=== PATIENT | female | born 1940 | race Caucasian/White ===

== ENCOUNTER → 2016-06-14 | Outpatient (CLI) | payer BC ==
[~2016-06-14] MED LIST: ALBUAER19 INH; ATOR-24 PO; CETI10TA84 PO; DABI150C PO; DILT-113 PO; FLUT0.0529 NAE; FRRS300 PO; FURO20TA PO; GFNSR600 PO; IRBE1TAB46 PO; LCTX PO; METF1TAB85 PO; OMEP20CA9 PO; SYMIN INH; TRIA0.1C20 TOP
[2016-06-14 13:13] LABS: ESTIMATED AVERAGE GLUCOSE 174 mg/dl; HA1C FLAG Normal (Normal)
[2016-06-14 13:14] LABS: RATIO 26.2 mcg/mg (0-30.0)
[2016-06-14 13:22] LABS: ALT/SGPT 22 U/L (12-78); AST/SGOT 13 U/L (15-37); BLOOD UREA NITROGEN 20 mg/dl (7-18); BUN/CREATININE RATIO 18.3 (10-20); CALCIUM 9.1 mg/dl (8.5-10.1); CARBON DIOXIDE 29 mmol/L (21-32); CHLORIDE 104 mmol/L (98-107); CHOLESTEROL 133 mg/dl (0-200); GLUCOSE 175 mg/dl (70-99); POTASSIUM 4.1 mmol/L (3.5-5.1); SODIUM 141 mmol/L (136-145); TRIGLYCERIDES 156 mg/dl (0-150); VERY LOW DENSITY LIPOPROT CALC 31 mg/dl
[2016-06-14 13:23] LABS: ALB/GLOB RATIO 1.1 (0.9-2); ALKALINE PHOSPHATASE 94 U/L (45-117); CHOLESTEROL/HDL RATIO 2.6; HDL CHOLESTEROL 52 mg/dl; LDL CHOLESTEROL CALCULATED 50 mg/dl
== END | disposition home or self-care (01) ==
LOC: C.LABPVFM 09:36
PROVIDERS: ATTEND Family Medicine
DX: E78.5 Hyperlipidemia, unspecified (principal); I48.91 Unspecified atrial fibrillation; I10 Essential (primary) hypertension; E11.29 Type 2 diabetes mellitus with other diabetic kidney complication

== ENCOUNTER → 2016-11-16 | Outpatient (CLI) | payer BC ==
[2016-11-16 13:23] LABS: ESTIMATED AVERAGE GLUCOSE 197 mg/dl; HA1C FLAG Normal (Normal)
[2016-11-16 13:47] LABS: AST/SGOT 15 U/L (15-37); BLOOD UREA NITROGEN 13 mg/dl (7-18); BUN/CREATININE RATIO 13.2 (10-20); CALCIUM 8.8 mg/dl (8.5-10.1); CARBON DIOXIDE 27 mmol/L (21-32); CHLORIDE 104 mmol/L (98-107); CREATININE 0.96 mg/dl (0.60-1.20); GLUCOSE 174 mg/dl (70-99); POTASSIUM 4.1 mmol/L (3.5-5.1); SODIUM 138 mmol/L (136-145)
[2016-11-16 13:49] LABS: ALB/GLOB RATIO 1.1 (0.9-2); ALKALINE PHOSPHATASE 99 U/L (45-117); ALT/SGPT 21 U/L (12-78)
[2016-11-16 14:15] LABS: RATIO 43.9 mcg/mg (0-30.0)
--- NOTE | 2016-11-22 11:58 | CODING QUERY MEDICAL NECESSITY ---
SUPPORTING DIAGNOSIS NEEDED Dr. Rodriguez, A supporting diagnosis is required for the test/procedure performed on this patient in order for us to be reimbursed by the patient's insurance. Please provide a supporting diagnosis for the following test/procedure listed below next to the test name along with your signature. *If there is no additional diagnosis for this patient that would support the following test/procedure please document that below next to the test/procedure. Test(s)/Procedure(s) that require a supporting diagnosis: * [id number] GLYCATED HEMOGLOBIN DIAGNOSIS: DATE OF SERVICE: 11/16/16 Provider Signature: Date: Thank you Rui [facility] Information Management Once completed, please kindly fax back to [phone] For questions please call [phone]
== END | disposition home or self-care (01) ==
LOC: C.LABPVFM 08:02
PROVIDERS: ATTEND Family Medicine
DX: K64.9 Unspecified hemorrhoids (principal); E11.29 Type 2 diabetes mellitus with other diabetic kidney complication

== ENCOUNTER → 2016-12-30 | Outpatient (CLI) | payer BC ==
[2016-12-30 13:04] LABS: CHOLESTEROL/HDL RATIO 2.3
== END | disposition home or self-care (01) ==
LOC: C.LABPVFM 09:47
PROVIDERS: ATTEND Internal Medicine Cardiovascular Disease
DX: E78.5 Hyperlipidemia, unspecified (principal)

== ENCOUNTER → 2017-03-16 | Outpatient (CLI) | payer BC ==
[2017-03-16 13:01] LABS: CREATININE RANDOM URINE 76.6 mg/dl
[2017-03-16 13:06] LABS: ALBUMIN 3.6 gm/dl (3.4-5.0); ALT/SGPT 27 U/L (12-78); AST/SGOT 16 U/L (15-37); BLOOD UREA NITROGEN 15 mg/dl (7-18); CALCIUM 8.9 mg/dl (8.5-10.1); CARBON DIOXIDE 23 mmol/L (21-32); CREATININE 1.09 mg/dl (0.60-1.20); GLUCOSE 293 mg/dl (70-99); POTASSIUM 3.9 mmol/L (3.5-5.1); SODIUM 133 mmol/L (136-145)
[2017-03-16 13:10] LABS: ALKALINE PHOSPHATASE 99 U/L (45-117); CHOLESTEROL 125 mg/dl (0-200); LDL CHOLESTEROL CALCULATED 34 mg/dl; TOTAL PROTEIN 7.2 gm/dl (6.4-8.2)
[2017-03-16 13:12] LABS: HEMOGLOBIN A1C 11.2 % (4.5-5.6)
== END | disposition home or self-care (01) ==
LOC: C.LABPVFM 09:29
PROVIDERS: ATTEND Family Medicine
DX: I48.91 Unspecified atrial fibrillation (principal); I10 Essential (primary) hypertension; E11.29 Type 2 diabetes mellitus with other diabetic kidney complication

== ENCOUNTER → 2017-04-27 | Outpatient (CLI) | payer BC ==
[2017-04-27 13:00] LABS: BLOOD UREA NITROGEN 16 mg/dl (7-18); CALCIUM 8.9 mg/dl (8.5-10.1); CARBON DIOXIDE 27 mmol/L (21-32); CREATININE 1.01 mg/dl (0.60-1.20); GLUCOSE 203 mg/dl (70-99); POTASSIUM 3.9 mmol/L (3.5-5.1); SODIUM 136 mmol/L (136-145)
== END | disposition home or self-care (01) ==
LOC: C.LABPVFM 09:47
PROVIDERS: ATTEND Family Medicine
DX: I10 Essential (primary) hypertension (principal); E11.29 Type 2 diabetes mellitus with other diabetic kidney complication

== ENCOUNTER → 2017-06-28 | Outpatient (CLI) | payer BC ==
[2017-06-28 13:35] LABS: HEMOGLOBIN A1C 8.1 % (4.5-5.6)
[2017-06-28 14:18] LABS: CREATININE RANDOM URINE 31.5 mg/dl
== END | disposition home or self-care (01) ==
LOC: C.LABPVFM 09:12
PROVIDERS: ATTEND Family Medicine
DX: E11.29 Type 2 diabetes mellitus with other diabetic kidney complication (principal)

== ENCOUNTER → 2017-10-04 | Outpatient (CLI) | payer BC ==
[2017-10-04 14:10] LABS: ALBUMIN 3.7 gm/dl (3.4-5.0); ALKALINE PHOSPHATASE 86 U/L (45-117); ALT/SGPT 22 U/L (12-78); AST/SGOT 15 U/L (15-37); BLOOD UREA NITROGEN 11 mg/dl (7-18); CALCIUM 8.6 mg/dl (8.5-10.1); CARBON DIOXIDE 26 mmol/L (21-32); CHOLESTEROL 108 mg/dl (0-200); CREATININE 1.08 mg/dl (0.60-1.20); GLUCOSE 158 mg/dl (70-99); LDL CHOLESTEROL CALCULATED 27 mg/dl; POTASSIUM 4.1 mmol/L (3.5-5.1); SODIUM 139 mmol/L (136-145)
== END | disposition home or self-care (01) ==
LOC: C.LABPVFM 08:33
PROVIDERS: ATTEND Family Medicine
DX: E78.5 Hyperlipidemia, unspecified (principal); I48.91 Unspecified atrial fibrillation; I12.9 Hypertensive chronic kidney disease with stage 1 through stage 4 chronic kidney disease, or unspecified chronic kidney disease; N18.3 Chronic kidney disease, stage 3 (moderate); E11.22 Type 2 diabetes mellitus with diabetic chronic kidney disease

== ENCOUNTER 2019-03-21 04:54 | Inpatient (IN) ==
--- NOTE | 2019-02-22 09:05 | PAT Medication Instructions ---
Medication Instructions Date of Service February 22, 2019 Home Medications Medication Instructions Recorded diltiazem HCl 120 mg capsule,24 120 mg PO QPM #90 cap 11/29/18 hr,extended release diltiazem HCl 180 mg capsule,24 180 mg PO QAM #90 cap 02/13/19 hr,extended release metformin 500 mg tablet,extended 500 mg PO BID 90 Days #180 tab 02/20/19 release 24 hr Pradaxa 150 mg PO BID albuterol sulfate [ProAir HFA] 2 puff INHALATION Q6H PRN ferrous sulfate 325 mg PO QAM furosemide 20 mg PO QAM diltiazem HCl 120 mg capsule,24 hr,extended release 120 mg PO QPM irbesartan 150 mg tablet 75 mg PO QAM diltiazem HCl 180 mg capsule,24 hr,extended release 180 mg PO QAM atorvastatin 40 mg PO QAM sitagliptin [Januvia] 100 mg PO QAM metformin 500 mg tablet,extended release 24 hr 500 mg PO BID ASK your prescriber and surgeon Pradaxa 150 mg PO BID MUST BE HELD FOR AT LEAST 5 FULL DAYS BEFORE SURGERY FOR SPINAL ANESTHESIA (PREFERRED METHOD) DO NOT take the morning of surgery ferrous sulfate 325 mg PO QAM furosemide 20 mg PO QAM irbesartan 150 mg tablet 75 mg PO QAM sitagliptin [Januvia] 100 mg PO QAM metformin 500 mg tablet,extended release 24 hr 500 mg PO BID Take morning of surgery With a small sip of water, OTHERWISE NOTHING TO EAT OR DRINK AFTER MIDNIGHT: albuterol sulfate [ProAir HFA] 2 puff INHALATION Q6H PRN (if needed, and bring with you to the hospital) diltiazem HCl 180 mg capsule,24 hr,extended release 180 mg PO QAM atorvastatin 40 mg PO QAM Take evening before surgery albuterol sulfate [ProAir HFA] 2 puff INHALATION Q6H PRN (if needed) diltiazem HCl 120 mg capsule,24 hr,extended release 120 mg PO QPM metformin 500 mg tablet,extended release 24 hr 500 mg PO BID Other Notes If you have any questions please call us at [phone] or [phone] or [phone] or [phone]
--- NOTE | 2019-02-23 12:10 | Anesthesiology Consultation ---
Date of Service February 23, 2019 Assessment & Plan (1) Encounter for pre-operative examination: Medical clearance 02/20/2019: "Patient is medically stratified for surgery at this time." Cardiology clearance 12/31/2018: "Patient is stable from a cardiovascular standpoint. She demonstrates excellent control of her blood pressure and LDL cholesterol. Mistreats excellent functional status without limiting cardiac symptoms. She is an acceptable risk for knee replacement surgery without further testing." Patient states she was told to hold Pradaxa for 3 days prior to surgery. Advised it must be held for at least 5 full days prior to surgery for spinal anesthesia. She will check with surgeon and linderman machine operator to see if OK to hold for 5 days. Chart Review Chart Review: Acceptable Risk for Surgery and Patient seen in Pre Admission Testing Teaching & Discussion Instructed NPO after midnight before surgery, except medications with 15 cc of water. Medication instructions provided according to the PAT guidelines. History Surgery Operation Date: 03/21/19 07:00 Proposed Procedures p Right Total Knee Arthroplasty - Christopher Zepeda MD Height/Weight Height: 5 ft 4 in Weight: 89.3 kg Allergies Allergy/AdvReac Type Severity Reaction Status Date / Time mercury (elemental) Allergy Severe EYES SWELL Verified 02/20/19 13:51 SHUT Sulfa (Sulfonamide Allergy Mild RASH Verified 02/20/19 13:51 Antibiotics) oxycodone [From Percocet] Allergy DIZZY,"MAKES Verified 02/20/19 14:27 ME HASMUKH" Medications Home Medications Medication Instructions Recorded Confirmed Last Taken Pradaxa 150 mg PO BID 11/08/17 02/20/19 11/12/17 22:30 albuterol sulfate [ProAir HFA] 2 puff INHALATION Q6H PRN 11/08/17 02/20/19 Unknown ferrous sulfate 325 mg PO QAM 11/08/17 02/20/19 11/14/17 10:00 furosemide 20 mg PO QAM 11/08/17 02/20/19 11/14/17 10:00 diltiazem HCl 120 mg capsule,24 120 mg PO QPM #90 cap 11/29/18 02/20/19 Unknown hr,extended release irbesartan 150 mg tablet 75 mg PO QAM tab 01/08/19 02/20/19 Unknown diltiazem HCl 180 mg capsule,24 180 mg PO QAM #90 cap 02/13/19 02/20/19 Unknown hr,extended release atorvastatin 40 mg PO QAM 02/14/19 02/20/19 Unknown sitagliptin [Januvia] 100 mg PO QAM 02/14/19 02/20/19 Unknown metformin 500 mg tablet,extended 500 mg PO BID 90 Days #180 tab 02/20/19 02/20/19 Unknown release 24 hr Past Medical History Medical History (Updated 02/26/19 @ 10:30 by Octaviano Mercado) Asthma NO INHALER USE PAST YR Atrial fibrillation F/U DR VALENTIN Q 6MONTHS Cardiac murmur Mild tricuspid regurg on 2000 echo Carpal tunnel syndrome on both sides Chronic back pain Chronic kidney disease (CKD) Diabetes mellitus, type 2 Diverticular disease GERD (gastroesophageal reflux disease) History of cardioversion x 2. Has since returned to A fib. Hyperlipidemia Hypertension On anticoagulant therapy Osteoarthritis Peripheral neuropathy SOB (shortness of breath) on exertion Exercise / Class Metabolic Activity III < 4 Walking/Shop/Light housework (+mild SOB with 1 FOS, denies CP. Using cane for ambulation.) Past Family History Family History Mother Diabetes Coronary heart disease Hypertension Father Diabetes Coronary heart disease Stroke Sister Diabetes Cancer elbow Brother Kidney disease Diabetes Past Surgical History Surgical History History of back surgery Fusion History of bilateral tubal ligation History of cataract surgery RT/LEFT History of colonoscopy History of dilatation and curettage History of laminectomy FUSION History of tooth extraction History of total hip arthroplasty BILAT History of total knee replacement LEFT Past Anesthesia History No Hx of Anesthesia Complications and No Family Hx of Anesthesia Complications History of PONV No Hx of PONV and No Hx of Motion Sickness Social History Smoking Status: Former smoker tobacco type: cigarettes Do You Dip or Chew Tobacco: No Smoking End Date: 2008 Hx Alcohol Use: Yes Alcohol type: beer, wine and hard liquor alcohol intake frequency: a few times a month Hx Substance Use: No substance use type: does not use Review of Systems Pt denies any recent chest pain, shortness of breath, palpitations, cough, fever or URI. Physical Exam Vital Signs BP: 110/54 P: 83bpm SPO2: 95% RA T: 98.4 F R: 16 ENMT Mouth: + dentures (partial upper) and + dental restorations (several crowns); no chipped teeth and no loose teeth Thyromental Distance: > or= 3.5 Finger Breadths (3.5) Mallampati Class: III Neck normal visual inspection; neck extension not limited Respiratory normal respiratory effort Auscultation: lungs clear to auscultation bilaterally Cardiovascular Rate/Rhythm: regular rate; + abnormal rhythm (irreg irreg) Heart Sounds: + murmur (I/) Vessels: no carotid bruit Extremities: no edema Testing Laboratory Results 02/23/19 12:28 PT 14.2 Seconds (9.0-12.0) H 02/23/19 12:28 INR 1.4 (0.9-1.1) H 02/23/19 12:28 APTT 45.1 Seconds (21.0-31.0) H* 02/23/19 12:28 Urine Color Yellow 02/23/19 12:28 Urine Appearance Cloudy (Clear) A 02/23/19 12:28 Urine pH 5.0 (4.5-7.5) 02/23/19 12:28 Ur Specific [place] 1.016 (1.000-1.030) 02/23/19 12:28 Urine Protein Negative (Negative) 02/23/19 12:28 Urine Glucose (UA) 1+ (Negative) H 02/23/19 12:28 Urine Ketones Negative (Negative) 02/23/19 12:28 Urine Nitrite Negative (Negative) 02/23/19 12:28 Ur Leukocyte Esterase 1+ (Negative) H 02/23/19 12:28 Urine WBC (Auto) 1-5 /hpf (0-5) 02/23/19 12:28 Urine RBC (Auto) 10-30 /hpf (0-4) H 02/23/19 12:28 U Hyaline Cast (Auto) 1-5 /lpf (0-5) 02/23/19 12:28 U Epithel Cells (Auto) >30 /lpf (0-5) H 02/23/19 12:28 Urine Bacteria (Auto) Negative (Negative) 02/23/19 12:28 Blood Type O Positive 02/23/19 12:28 Antibody Screen NEGATIVE 02/23/19 12:28 02/15/19 SODIUM: 137 POTASSIUM: 4.0 CHLORIDE: 103 CO2: 28 BUN: 15 CREATININE: 1.21 GLUCOSE: 171 A1C: 7.5% Electrocardiogram Date: 02/23/19 Atrial flutter at 91 bpm with variable AV block. Right superior axis deviation. Nonspecific T wave abnormality. Compared with EKG of 11/16/2017, ventricular rate has decreased by 60 bpm, ST no longer depressed in lateral leads. Chest X-Ray Date: 02/23/19 IMPRESSION: No acute cardiopulmonary findings. Stable cardiomegaly.
--- NOTE | 2019-02-23 13:19 | XRay Report ---
XR chest Pre-admission PA/Lat CLINICAL HISTORY: Preoperative evaluation. COMPARISON STUDY: Chest radiograph 04/25/2014. Chest CT April 26, 2014. FINDINGS: Lung volumes are normal. Lungs are clear. There is no pneumothorax or pleural effusion. Hea rt is mildly enlarged. Mediastinal contours are normal. There is no evidence for pulmonary edema. Inc idental note is made of multilevel discectomy and fusion within the lumbar spine. IMPRESSION: No acute cardiopulmonary findings. Stable cardiomegaly. Electronically signed by: Po Stiles M.D. 02/23/2019 1:18 PM
[2019-02-23 13:31] LABS: Basophils # (auto) 0.03 K/uL (0-0.2); Basophils % (auto) 0.3 %; Eosinophils % (auto) 1.1 %; Hematocrit (blood only) 41.7 % (37-47); Hemoglobin 13.8 g/dL (12.0-16.0); Immature Granulocytes # (auto) 0.03 K/uL (0.00-0.02); Immature Granulocytes % (auto) 0.3 %; Lymphocytes # (auto) 1.78 K/uL (1.2-3.4); Mean Corpuscular Hemoglobin 29.7 pg (25-34); Mean Corpuscular Hgb Conc 33.1 g/dL (32-36); Mean Corpuscular Volume 89.9 fL (80-100); Mean Platelet Volume 10.3 fL (7.4-10.4); Monocytes # (auto) 0.69 K/uL (0.11-0.59); Monocytes % (auto) 7.8 %; Neutrophils # (auto) 6.26 K/uL (1.4-6.5); Neutrophils % (auto) 70.5 %; Platelet Count 234 K/uL (130-400); RDW Coefficient of Variation 13.8 % (11.5-14.5); RDW Standard Deviation 45.2 fL (36.4-46.3); Red Blood Count 4.64 M/uL (4.2-5.4); White Blood Count 8.89 K/uL (4.8-10.8)
[2019-02-23 14:04] LABS: Appearance Urine Cloudy (Clear); Bacteria Urine Automated Negative (Negative); Bilirubin Urine Negative (Negative); Blood Urine 3+ (Negative); Color Urine Yellow; Epithelial Cell Urine Auto >30 /lpf (0-5); Glucose Urine UA 1+ (Negative); Ketones Urine Negative (Negative); Leukocyte Esterase Urine 1+ (Negative); Nitrite Urine Negative (Negative); Protein Urine Negative (Negative); Specific Gravity Urine 1.016 (1.000-1.030); Urobilinogen Urine Negative (Negative)
[2019-02-23 14:11] LABS: INR 1.4 (0.9-1.1); Partial Thromboplastin Ratio 1.7; Prothrombin Time 14.2 Seconds (9.0-12.0)
[2019-02-23 14:26] LABS: Partial Thromboplastin Time 45.1 Seconds (21.0-31.0)
--- NOTE | 2019-03-20 17:05 | History and Physical Report ---
DATE OF ADMISSION: 03/21/2019 CHIEF COMPLAINT: Chronic right knee pain. HISTORY OF PRESENT ILLNESS: This is a 78-year-old female, patient of Dr. Zarco, complaining of chronic right knee pain, longstanding, now progressively getting worse. The patient has failed conservative treatment including intraarticular injections, home exercise program, brace and the use of a cane. The patient has increased pain with weightbearing activities and her pain does interfere with her activities of daily living. The patient has been diagnosed with end-stage osteoarthritis per clinical and radiographic exams and wishes to proceed with a right total knee arthroplasty. PAST MEDICAL HISTORY: Hypertension, atrial fibrillation, diabetes mellitus, osteoarthritis, obesity. SOCIAL HISTORY: Nonsmoker, occasional drinker. PAST SURGICAL HISTORY: Left total knee replacement, spine surgery, left hip replacement, right hip replacement. FAMILY HISTORY: Noncontributory. REVIEW OF SYSTEMS: Chronic right knee pain and instability. Otherwise, denies any shortness of breath, chest pain, nausea, vomiting or any other joint complaints. MEDICATIONS: 1. Januvia 100 mg daily. 2. Atorvastatin 40 mg q.a.m. 3. Metformin 500 mg at bedtime. 4. Diltiazem 180 mg q.a.m. 5. Diltiazem 120 mg at bedtime. 6. Ferrous sulfate 325 daily. 7. Metformin 1000 mg q.a.m. 8. Irbesartan 75 mg q.a.m. 9. Furosemide 20 mg q.a.m. 10. Albuterol inhaler 90 mcg per actuation 2 puffs every 6 hours as needed for wheezing. 11. Pradaxa 150 mg twice daily. ALLERGIES: PERCOCET, SULFA, MERCURY. PHYSICAL EXAMINATION: GENERAL: Well-developed, well-nourished 78-year-old female in no acute distress. She is alert and oriented x3 and pleasant. HEENT: Normocephalic, atraumatic. Extraocular motions are intact. Pupils are equal and reactive to light. HEART: Irregular rhythm with a history of AFib. The rate is normal. LUNGS: Clear. ABDOMEN: Soft, nontender, bowel sounds are present. EXTREMITIES: Right knee limited range of motion of 0-125 with a varus deformity. Medial joint line tenderness. Positive crepitation, 5/5 strength. Neurologically and neurovascularly intact in her right lower extremity. DIAGNOSES: Right knee end-stage osteoarthritis, hypertension, atrial fibrillation, diabetes mellitus, osteoarthritis, sciatica, obesity. PLAN: The patient was advised of her diagnosis. Indications, risks, benefits, postop course have all been reviewed. The patient wished to proceed with a right total knee arthroplasty. Necessary consent forms, preoperative testing and clearances will be obtained.
[2019-03-21] MEDS ORDERED: FAMOTIDINE 20 MG TAB PO SCH (06:00)
[2019-03-21] MEDS ORDERED: METOCLOPRAMIDE HCL 10 MG TABLET PO SCH (06:00)
[2019-03-21] MEDS ORDERED: ACETAMINOPHEN 500 MG TAB PO SCH (06:00)
[2019-03-21] MEDS ORDERED: ROPIVACAINE 0.5% HCL/PF 150 MG, BUPIVACAINE 0.5% MPF 30 ML, EPINEPHrine 30MG/30ML (OR U... INSTIL SCH (06:00)
[2019-03-21] MEDS ORDERED: GABAPENTIN 300 MG CAP PO SCH (06:00)
[2019-03-21] MEDS ORDERED: LR 500ML BOLUS, THEN 15ML/HR IV SCH (06:00)
[2019-03-21] MEDS ORDERED: BUPIVACAINE 0.5 % 5 MG/1 ML PF 10ML VIAL ONE (06:24)
[2019-03-21] MEDS ORDERED: BUPIVACAINE/EPINEPHRINE 0.25% 1:200,000 30 ML VIAL ONE (06:24)
[2019-03-21] MEDS ORDERED: DEXAMETHASONE SOD INJ 4 MG/ML VIAL ONE (06:24)
[2019-03-21] MEDS ORDERED: ORTHO JOINT ANESTHETIC ONE (06:37)
[2019-03-21] MEDS ORDERED: BACITRACIN INJ 50,000 UNIT VIAL ONE (06:37)
[2019-03-21] MEDS ORDERED: MIDAZOLAM HCL 1 MG/ML 2ML VIAL ONE ×2 (06:38)
[2019-03-21] MEDS ORDERED: fentaNYL citrate 100 MCG/2 ML VIAL ONE (06:38)
--- NOTE | 2019-03-21 07:00 | History & Physical Bridge Note ---
Date of Service March 21, 2019 History & Physical Bridge Note I have examined the patient, reviewed the History & Physical and in the interval since the performance of the History & Physical I have noted the following changes of clinical significance: no changes noted
[2019-03-21] MEDS: CEFAZOLIN 2000MG 2,000 MG/15 ML SYR IV SCH ×4 (07:17→21:59)
[2019-03-21] MEDS ORDERED: fentaNYL citrate 100 MCG/2 ML VIAL IV PRN (07:20)
[2019-03-21] MEDS ORDERED: ONDANSETRON INJ 2 MG/ML 2 ML VIAL IV PRN ×2 (07:20→10:49)
[2019-03-21] MEDS ORDERED: ATROPINE SULFATE 0.1 MG/ML 10ML SYR IV PRN (07:20)
[2019-03-21] MEDS ORDERED: ePHEDrine sulfate 50 MG/ML AMP IV PRN (07:20)
--- NOTE | 2019-03-21 08:43 | Post Operative Brief Note ---
Immediate Post Op Note v1 Date of Surgery March 21, 2019 Pre & Post Diagnosis Operation Date: 03/21/19 07:00 Pre-Op Diagnosis: Right Knee End Stage Osteoarthritis Post-Op Diagnosis: Right Knee End Stage Osteoarthritis I identified the patient and participated in the time-out.: Yes Procedure Operation Date: 03/21/19 07:00 Actual Procedures p Right Total Knee Arthroplasty(Right) - Christopher Zepeda MD Surgeon Christopher Zepeda MD Sales Director NAVA Anguiano Estimated Blood Loss 5 Findings Consistent with Post-Op Diagnosis Specimens Bone cuts Drains Hemovac Drain (10 fr dual luman ) Anesthesia Type MAC Spinal Regional Complications none Disposition Accompanied Patient To Recovery: No Disposition: Recovery Room Overlapping Procedure I was present for: the critical portions of procedure. Back up surgeon: was not required during procedure.
[2019-03-21] MEDS ORDERED: PROPOFOL IV EMULSION 10 MG/ML 20 ML VIAL IV ONE (08:53)
[2019-03-21] MEDS ORDERED: LIDOCAINE HCL 2% 2 ML VIAL/AMP(20MG/ML) INFIL ONE (08:54)
[2019-03-21] MEDS ORDERED: PHENYLEPHRINE 100MCG/ML 5ML SYR ONE (08:54)
[2019-03-21] MEDS ORDERED: ONDANSETRON INJ 2 MG/ML 2 ML VIAL ONE (08:54)
--- NOTE | 2019-03-21 09:49 | XRay Report ---
XR knee RT 1 or 2V routine CLINICAL HISTORY: 78 years-old Female presenting with Surgical Post Op. TECHNIQUE: Frontal and crosstable lateral views of the right knee were obtained. COMPARISON: None. FINDINGS: Postsurgical changes of total right knee arthroplasty with patellar resurfacing. Surgical drain and s kin chin in place. No malalignment. No periprosthetic fracture or lucency. Expected intra-articula r and soft tissue emphysema. Atherosclerosis. IMPRESSION: Expected postsurgical appearance status post total right knee arthroplasty. ACT 112: Negative or not required by law. Electronically signed by: Jason Pearson M.D. 03/21/2019 9:48 AM
--- NOTE | 2019-03-21 10:17 | Anesthesiology Progress Note ---
Date of Service March 21, 2019 Anesthesia Post Procedure Vital Signs Vital Signs: Temp Pulse Pulse Resp BP Pulse Ox 03/21/19 10:05 36.3 C L 86 21 118/70 96 03/21/19 09:55 70 16 109/57 L 94 03/21/19 09:45 78 16 111/66 95 03/21/19 09:35 37.0 C 75 16 108/60 95 03/21/19 09:25 82 18 111/58 L 96 03/21/19 09:15 92 H 18 107/64 99 03/21/19 09:07 37.1 C 90 18 110/64 98 03/21/19 05:42 36.7 C 96 H 20 146/95 H 95 Transfer of Care Handoff Completed per policy Notes Mental Status: alert / awake / arousable Patient Amnestic to Procedure: Yes Nausea / Vomiting: adequately controlled Pain: adequately controlled Airway Patency, RR, SpO2: stable & adequate BP & HR: stable & adequate Hydration State: stable & adequate Neuraxial Anesthesia: was administered and sensory block is resolving Anesthetic Complications: no major complications apparent
[2019-03-21] MEDS ORDERED: NALOXONE HCL 0.4 MG/1 ML VIAL/CARP IV PRN (10:49)
[2019-03-21] MEDS ORDERED: ACETAMINOPHEN SOL 650 MG/20.3 ML UDC PO PRN (10:49)
[2019-03-21] MEDS ORDERED: bisacodyL 10 MG SUPP PR PRN (10:49)
[2019-03-21] MEDS ORDERED: MAGNESIUM HYDROXIDE SUSP 30 ML UDC PO PRN (10:49)
[2019-03-21] MEDS ORDERED: HYDROmorphone INJ 0.5 MG/0.5 ML SYR IV PRN (10:49)
[2019-03-21] MEDS ORDERED: ALBUTEROL HFA INHALER 8.5 GM INH PRN (11:02)
[2019-03-21] MEDS ORDERED: PHARMACY GLYCEMIC MGMT CONSULT PRN (11:31)
[2019-03-21] MEDS ORDERED: GLUCOSE 40% GEL 15 GM TUBE PO PRN (11:45)
[2019-03-21] MEDS ORDERED: DEXTROSE 50% 50 ML SYRINGE IV PRN (11:45)
[2019-03-21] MEDS ORDERED: GLUCOSE 10 TABS/TUBE PO PRN (11:45)
[2019-03-21] MEDS ORDERED: CARBOHYDRATES FOR HYPOGLYCEMIA PO PRN (11:45)
[2019-03-21] MEDS ORDERED: GLUCAGON FOR INJ 1 MG VIAL IM PRN (11:45)
[2019-03-21] MEDS: SODIUM CHLORIDE 0.9% 1000ML 1,000 ML IV SCH (11:58)
--- NOTE | 2019-03-21 12:02 | Pharmacy Report ---
Glycemic Control Consultation - Date of Service March 21, 2019 - Scope Scope: Glycemic Pharmacist consulted by Maco Taylor on 03/21 for glycemic control and to write orders per [facility] inpatient glycemic control protocol - Objective Weight: 86.693 kg Accuchecks BSG (last 24hrs): 03/21/19 03/21/19 05:22 09:09 POC Glucose 165 H 200 H - Recent Pertinent Medications Outpatient Anti-diabetic Regimen: * metformin 500 mg bid, sitagliptan 100 qam * A1c = 7.5 % 02/25/19 Risk Factors for Insulin Resistance: * Steroids: dex in OR * Recent Surgery: POD 0 * Diet: T2DM - Assessment & Plan Assessment & Plan: ASSESSMENT: * 78 year old female now s/p knee arthroplasty, POD 0. Type 2 diabetic managed only on oral agents at home * Received dexamethasone in OR therefore anticipate steroid induced hyperglycemia * Will utilize basal/bolus insulin postop for glycemic control PLAN FOR INPATIENT GLYCEMIC CONTROL: * Pt is maintained on oral antidiabetic agents as an outpatient * Oral agents are not recommended for inpatient use d/t drug interactions, changing PO intake, and difficulty titrating for acute hyper/hypoglycemia. ADA recommends re-initiating outpatient oral agents 1-2 days prior to discharge if/when appropriate if they were held on admission. * Will hold oral agents for admission and utilize SQ basal bolus insulin regimen which is the recommended regimen for inpatient glycemic control. * Will initiate weight based insulin dosing for insulin michel patient and titrate based on BSG trends. * Basal insulin * Lantus 20 units x 1 (0.2 units/kg - to cover steroids) * Bolus insulin * NovoLog per scale ACHS or Q6hrs while NPO * Goal Range: Low 120 mg/dL - High 160 mg/dL * Correction Factor: 20 mg/dL/unit * Nutritional / Prandial insulin per carb ratio of 1 unit per 7 grams CHO consumed * Please note that the plan above was derived based on current level of insulin resistance and hospital stress. These recommendations are appropriate for inpatient admission only. Plan of care upon discharge will need to be reassessed to avoid potential outpatient hypo/hyperglycemia. Thank you.
[2019-03-21] MEDS ORDERED: INSULIN GLARGINE SOLOSTAR 100 UNITS/ML 3 ML PEN SC ONE (12:45)
[2019-03-21] MEDS: INSULIN ASPART 100 UNITS/ML 3 ML PEN SC SCH ×3 (13:04→21:08)
--- NOTE | 2019-03-21 13:42 | Operative Report ---
Post Operative Report Pre & Post Diagnosis Operation Date: 03/21/19 07:00 Pre-Op Diagnosis: Right Knee End Stage Osteoarthritis Post-Op Diagnosis: Right Knee End Stage Osteoarthritis I identified the patient and participated in the time-out.: Yes Procedure Operation Date: 03/21/19 07:00 Actual Procedures p Right Total Knee Arthroplasty(Right) - Christopher Zepeda MD Surgeon Christopher Zepeda MD Carrot Harvester NAVA Anguiano Estimated Blood Loss 5 Findings Consistent with Post-Op Diagnosis Specimens Bone cuts Drains 2 Hemovac Anesthesia Type MAC Spinal Regional Complications none Disposition Accompanied Patient To Recovery: No Disposition: Recovery Room Indications 78-year-old female with chronic progressive osteoarthritis in her right knee. She had previous left knee replacement in the past. Patient is failed all conservative management now presents for right knee replacement. Radiographs demonstrate she has a varus knee she is [id number] medial compartment tricompartmental osteoarthritis Description of Procedure Patient taken to the operating room the size under spinal MAC regional anesthesi a. Patient was placed supine on the operating table. A pneumatic tourniquet was placed about the right upper thigh. The right lower extremity was prepped and draped in sterile fashion. Knee exam demonstrated 15 degree flexion contracture with good flexion 130 degrees with no instability to varus valgus stress but positive Ken exam. The leg was elevated exsanguinated with an Esmarch bandage and pneumatic tourniquet was raised to 325 millimeters of mercury. Skin incised sharply in longitudinal fashion. Subcutaneous flaps elevated. Incision was made through the medial retinaculum extending up in the mid third of the quadriceps tendon and down to the medial tibial tubercle. Intra-articular findings demonstrated tricompartmental osteoarthritis [id number] medial compartment chronic ACL tear. The CompStak triathlon total knee arthroplasty system was used. To expose the knee the infrapatellar fat pad was resected. The meniscal remnants and cruciate ligaments were resected. The anterior fat pad over the femur in the area of the anterior flange of the femoral component was resected. Lateral synovial bands release. The femur was exposed. An intramedullary drill hole was made into the canal. A guide laura was placed. Distal femoral cutting guide was adjusted to resect a 5 degree valgus cut with 10 millimeters distal femur resected. The knee was extended and a subperiosteal peel lateral release was performed around the patella. Patella width was measured and width was reproduced using a freehand cut technique and a 31 x 9 symmetrical patella component. The 3 drill holes were made and the excess lateral facet was beveled off to prevent any impingement. Attention was taken back to the femur which was exposed with retractors and the femoral sizing guide was pinned in position. The drill holes were placed in 3 of external rotation to match epicondylar axis. Femur sized for a 3 right posterior stabilized component. The 4-in-1 cutting block was placed and then the anterior posterior and chamfer cuts are made. The tibia was then subluxed. The external tibial cutting guide was just to make a perpendicular cut to the long axis of the tibia below the most deficient bone loss side. A lamina practicing dermatologist was used and the flexion extension gaps were balanced. All posterior osteophytes removed. All meniscal remnants were resected. The tibia exposed and the trial tibial component size 3 was externally rotated in line with the tibial tubercle and pinned in position. The punch for stem was used. The notch cutting device was centered appropriately and the femoral notch cut was made. The femoral trial was inserted. Trial tibial inserts were placed and size 3 x 11 posterior stabilized trial gave balanced ligaments through flexion and extension. Patella tracking was assessed. The patella tracked centrally. The trial components were then removed and the orthomix anesthetic cocktail was injected per protocol. The knee was then copiously irrigated with pulsatile lavage antibiotic solution. Final components were then cemented with Simplex cement. Final components were triathlon size 3 right posterior stabilized femoral component, 3 tibial primary baseplate, 3 x 11 posterior stabilized polyethylene insert for tibia, S 31 x 9 mm symmetrical patella. While the cement cured the Betadine soak was used per protocol. After cement cured further pulsatile lavage irrigation performed and 2 Hemovac drains were brought out laterally. The quadriceps tendon and medial retinaculum were closed with figure of 8 #1 Vicryl sutures. The knee was taken through full range of motion and the repair was secure. The subcutaneous tissues were closed with 2-0 Vicryl sutures. Skin was closed with chin. Sterile dressings were applied. Patient procedure well. Maco VICK was my physician workers compensation claims assistant who assisted in patient positioning prepping and draping,leg positioning ,soft tissue retraction and instrument management and participated in the closing and will participate in postoperative care of the patient. The patient tolerated the procedure well. I attest to the content of the Intraoperative Record and any orders documented therein. Any exceptions are noted below.
--- NOTE | 2019-03-21 18:03 | Hospitalist Progress Note ---
Date of Service March 21, 2019 Assessment & Plan (1) Post-operative state: s/p right TKA Pain control per primary Monitor for acute blood loss - CBC am (2) Atrial fibrillation: Continue home diltiazem Resume dabigatran when ok with surgery (3) DM (diabetes mellitus), type 2: consult pharmacy Hold metformin while inpatient (4) Hypertension: Hold irbesartan POD #1 to avoid post op hypotension, continue furosemide, diltiazem Subjective Ms. Concepcion is s/p right TKA today. She is in good spirits and feels well. No c omplaints Pmhx: DMII, GERD, atrial tachycardia, ANSON, hld, htn Social: former smoker, quit in 2008 - she smoked socially but not daily. She has about 4 glasses of wine per month. Lives alone. Family hx: heart disease, DMII ROS Constitutional: no chills, aches, sweats or fever Respiratory: no sob,cough, sputum, or wheezing Cardiac: no chest pain, palpitations, edema, orthopnea or lightheadedness GI: no abdominal pain, nausea, vomiting, diarrhea or constipation : no dysuria or hesitancy Extremities: no joint pain or weakness Skin: no rash All other systems reviewed and negative Physical Exam Physical Exam: General: no distress Eyes: normal inspection, PERLL Respiratory: chest non tender, clear to auscultation, normal breath sounds, no respiratory distress, no accessory muscle use Cardiac: regular rate and rhythm, no rub or gallop, no murmur, no edema, no jvd GI/: active bowel sounds, no abd pain or tenderness, soft, non distended Extremities: normal range of motion, normal strength, non tender Neuro/Psych: alert and oriented x 3, normal mood and affect Skin: normal color, dry Results & Data Vital Signs (Past 12 Hours) Vital Signs Temp Pulse Pulse Pulse Resp BP Pulse Ox 03/21/19 16:11 36.9 C 91 H 18 125/79 94 03/21/19 13:44 36.9 C 81 16 110/62 93 03/21/19 12:28 85 16 121/77 96 03/21/19 11:30 74 16 117/70 97 03/21/19 10:55 78 16 111/69 98 03/21/19 10:30 36.8 C 85 16 105/67 97 03/21/19 10:05 36.3 C L 86 21 118/70 96 03/21/19 09:55 70 16 109/57 L 94 03/21/19 09:45 78 16 111/66 95 03/21/19 09:35 37.0 C 75 16 108/60 95 03/21/19 09:25 82 18 111/58 L 96 03/21/19 09:15 92 H 18 107/64 99 03/21/19 09:07 37.1 C 90 18 110/64 98 PG Care Time/CCT Total # of Minutes Spent Total Time Spent with Patient: Total time spent is greater than 50% in coord ination of care (as documented) at patient's floor/unit and/or counseling patient:
[2019-03-21] MEDS ORDERED: DABIGATRAN ETEXILATE 75 MG CAP PO SCH (21:00)
[2019-03-21] MEDS ORDERED: INSULIN HUMAN REGULAR PER UNIT 6 UNITS in SYRINGE 5.94 ML IV ONE (21:00)
[2019-03-21] MEDS: DOCUSATE SODIUM 100 MG CAP PO SCH (21:09)
[2019-03-21] MEDS: dilTIAZem ER 120 MG CAPCR PO SCH (21:09)
[2019-03-21] MEDS: SENNA 8.6 MG TAB PO SCH (21:09)
[2019-03-22] MEDS: SODIUM CHLORIDE 0.9% 1000ML 1,000 ML IV SCH (00:08)
[2019-03-22] MEDS: INSULIN ASPART 100 UNITS/ML 3 ML PEN SC SCH ×6 (00:50→20:31)
[2019-03-22] MEDS: HYDROCODONE/ACETAMOPHEN 5/325MG TAB PO PRN ×4 (04:27→20:33)
[2019-03-22] MEDS: CEFAZOLIN 2000MG 2,000 MG/15 ML SYR IV SCH (06:13)
[2019-03-22 06:49] LABS: Hematocrit (blood only) 34.7 % (37-47); Hemoglobin 11.5 g/dL (12.0-16.0); Mean Corpuscular Hemoglobin 29.2 pg (25-34); Mean Corpuscular Hgb Conc 33.1 g/dL (32-36); Mean Corpuscular Volume 88.1 fL (80-100); Mean Platelet Volume 9.7 fL (7.4-10.4); Platelet Count 222 K/uL (130-400); RDW Coefficient of Variation 13.2 % (11.5-14.5); RDW Standard Deviation 42.8 fL (36.4-46.3); Red Blood Count 3.94 M/uL (4.2-5.4); White Blood Count 12.66 K/uL (4.8-10.8)
[2019-03-22 07:20] LABS: BUN Creatinine Ratio 11.3 (10-20); Calcium 8.4 mg/dl (8.5-10.1); Creatinine Clr Calc Pharmacy 45.3 ml/min; Est GFR (African American) 56.3; Est GFR (Non-African American) 48.6; Potassium 4.2 mmol/L (3.5-5.1)
[2019-03-22] MEDS ORDERED: INSULIN GLARGINE SOLOSTAR 100 UNITS/ML 3 ML PEN SC ONE (08:30)
[2019-03-22] MEDS ORDERED: IRBESARTAN 75 MG TAB PO SCH (09:00)
[2019-03-22] MEDS: DOCUSATE SODIUM 100 MG CAP PO SCH ×2 (09:03→20:30)
[2019-03-22] MEDS: FUROSEMIDE 20 MG TAB PO SCH (09:03)
[2019-03-22] MEDS: MULTIVITAMIN TAB PO SCH (09:03)
[2019-03-22] MEDS: ATORVASTATIN 40 MG TAB PO SCH (09:03)
[2019-03-22] MEDS: FERROUS SULFATE 325 MG TAB PO SCH (09:03)
[2019-03-22] MEDS: dilTIAZem ER 180 MG CAPCR PO SCH (09:03)
--- NOTE | 2019-03-22 09:45 | Orthopedic Progress Note ---
Date of Service March 22, 2019 Assessment & Plan (1) Arthritis of right knee: POD #1, Right TKA PT/ OT DVT proph- resume pradaxa D/C plans- Home w HH As per medicine. Subjective POD #1, Doing well. Denies SOB, CP, N/V. Pain controlled well. Wishes HH on discharge. Physical Exam Physical Exam: Right knee dressings/ drain c/d/i. Toes/ ankle mobile. NO calf tenderness. A&Ox3. Results & Data Vital Signs (Past 12 Hours) Vital Signs Temp Pulse Pulse Resp BP Pulse Ox 03/22/19 07:33 36.4 C L 99 H 16 147/71 H 94 03/22/19 04:00 36.6 C 96 H 18 120/65 93 03/21/19 23:20 36.6 C 91 H 16 114/77 93
--- NOTE | 2019-03-22 14:26 | Hospitalist Progress Note ---
Date of Service March 22, 2019 Assessment & Plan (1) Post-operative state: s/p right TKA Pain control per primary Monitor for acute blood loss - CBC am (2) Atrial fibrillation: Continue home diltiazem Resume dabigatran when ok with surgery (3) DM (diabetes mellitus), type 2: consult pharmacy Hold metformin while inpatient (4) Hypertension: Resume irbesartan, continue furosemide, diltiazem (5) Acute blood loss anemia: hgb decreased by 2g following surgery Continue to follow hgbs Hgb 11.5 today Medicine will sign off at this time. Please call with any questions or concerns Subjective Ms. Concepcion is feeling well, no complaints ROS Constitutional: no chills, aches, sweats or fever Respiratory: no sob,cough, sputum, or wheezing Cardiac: no chest pain, palpitations, edema, orthopnea or lightheadedness GI: no abdominal pain, nausea, vomiting, diarrhea or constipation : no dysuria or hesitancy Extremities: no joint pain or weakness Skin: no rash All other systems reviewed and negative Physical Exam Physical Exam: General: no distress Eyes: normal inspection, PERLL Respiratory: chest non tender, clear to auscultation, normal breath sounds, no respiratory distress, no accessory muscle use Cardiac: regular rate and rhythm, no rub or gallop, 2/6 systolic murmur, no edema, no jvd GI/: active bowel sounds, no abd pain or tenderness, soft, non distended Extremities: normal range of motion, normal strength, non tender Neuro/Psych: alert and oriented x 3, normal mood and affect Skin: normal color, dry Results & Data Vital Signs (Past 12 Hours) Vital Signs Temp Pulse Pulse Resp BP Pulse Ox 03/22/19 11:40 36.6 C 97 H 16 129/73 95 03/22/19 07:33 36.4 C L 99 H 16 147/71 H 94 03/22/19 04:00 36.6 C 96 H 18 120/65 93 PG Care Time/CCT Total # of Minutes Spent Total Time Spent with Patient: Total time spent is greater than 50% in coordination of care (as documented) at patient's floor/unit and/or counseling patient:
--- NOTE | 2019-03-22 14:50 | Pharmacy Report ---
Pharmacy Glycemic Short Note 2 - Date of Service March 22, 2019 - Glycemic Short BSG Results (Last 24 hours): 03/21/19 03/21/19 03/22/19 17:10 20:31 00:13 Glucose POC Glucose 235 H 280 H 103 H 03/22/19 03/22/19 03/22/19 03:52 06:26 08:31 Glucose 152 H POC Glucose 143 H 182 H 03/22/19 12:30 Glucose POC Glucose 134 H OUTPATIENT ANTIDIABETIC REGIMEN: * Metformin ER 500mg PO BID * Sitagliptin 100 mg QAM ASSESSMENT: * 78 y/o F s/p knee arthroplasty with Type 2 DM controlled at home with oral anti-diabetic meds. * Oral meds were put on hold yesterday and pt was started on basal + bolus insulin post op. * BSGs yesterday were above 200 d/t steroid induced hyperglycemia. Steroids effects on BSG should be wearing off today. * Fasting BSG = 182 this AM; a dose of basal Lantus 10 units was given this AM. * Lunch BSG within goal. Novolog CF/CR were loosened. * Home Metformin ordered to resume with dinner since patient would be post 24 hrs after surgery. PLAN FOR INPATIENT GLYCEMIC CONTROL: * Metformin ER 500 mg PO BID resumed with dinner today. * Basal insulin: decreased * Lantus 10 units SQ x1 this AM. * Bolus insulin: loosened * NovoLog per scale ACHS or Q6hrs while NPO * Goal Range: Low 120 mg/dL - High 150 mg/dL * Correction Factor: 25 mg/dL/unit * Nutritional / Prandial insulin per carb ratio of 1 unit per 10 grams CHO consumed PLAN FOR DISCHARGE: * HbA1c = 7.5% on 02/15/19 * Goal A1c less than 8% given patient's age and co-morbidities. * Recommend resuming home oral anti-diabetic meds Metformin ER 500 mg BID and Januvia 100 mg PO QAM upon discharge with close follow up by outpatient provider.
[2019-03-22] MEDS: METFORMIN HCL ER 500 MG TABCR PO SCH (17:48)
[2019-03-22] MEDS: DABIGATRAN ETEXILATE 75 MG CAP PO SCH (20:30)
[2019-03-22] MEDS: dilTIAZem ER 120 MG CAPCR PO SCH (20:30)
[2019-03-22] MEDS: SENNA 8.6 MG TAB PO SCH (20:30)
[2019-03-22] MEDS ORDERED: DABIGATRAN ETEXILATE 75 MG CAP PO SCH (21:00)
[2019-03-23 05:44] LABS: Hematocrit (blood only) 34.5 % (37-47); Hemoglobin 11.1 g/dL (12.0-16.0); Mean Corpuscular Hemoglobin 28.9 pg (25-34); Mean Corpuscular Hgb Conc 32.2 g/dL (32-36); Mean Corpuscular Volume 89.8 fL (80-100); Platelet Count 216 K/uL (130-400); RDW Coefficient of Variation 13.5 % (11.5-14.5); RDW Standard Deviation 44.3 fL (36.4-46.3); Red Blood Count 3.84 M/uL (4.2-5.4); White Blood Count 9.83 K/uL (4.8-10.8)
[2019-03-23 06:23] LABS: BUN Creatinine Ratio 15.4 (10-20); Calcium 8.3 mg/dl (8.5-10.1); Creatinine Clr Calc Pharmacy 47.5 ml/min; Est GFR (African American) 59.6; Est GFR (Non-African American) 51.4
[2019-03-23] MEDS: INSULIN ASPART 100 UNITS/ML 3 ML PEN SC SCH ×2 (07:28→12:45)
[2019-03-23] MEDS: MULTIVITAMIN TAB PO SCH (07:30)
[2019-03-23] MEDS: ATORVASTATIN 40 MG TAB PO SCH (07:30)
[2019-03-23] MEDS: dilTIAZem ER 180 MG CAPCR PO SCH (07:30)
[2019-03-23] MEDS: FERROUS SULFATE 325 MG TAB PO SCH (07:30)
[2019-03-23] MEDS: DABIGATRAN ETEXILATE 75 MG CAP PO SCH (07:30)
[2019-03-23] MEDS: DOCUSATE SODIUM 100 MG CAP PO SCH (07:30)
[2019-03-23] MEDS: FUROSEMIDE 20 MG TAB PO SCH (07:30)
[2019-03-23] MEDS: METFORMIN HCL ER 500 MG TABCR PO SCH (07:31)
[2019-03-23] MEDS: HYDROCODONE/ACETAMOPHEN 5/325MG TAB PO PRN ×2 (07:31→12:44)
--- NOTE | 2019-03-23 08:16 | Orthopedic Progress Note ---
Date of Service March 23, 2019 Assessment & Plan (1) Arthritis of right knee: POD #2, Right TKA PT/ OT DVT proph- resume pradaxa D/C plans- Home w HH today if cleared by medicine. As per medicine- patient been running tachycardic, known hx of A-fib. Subjective POD #1 Feeling well. Denies SOB, CP, N/V. Did well in PT Pain Controlled. Has been Tachycardic. Physical Exam Physical Exam: Right silverlon dressing c/d/i, No calf tenderness. Toes/ ankle mobile. A&Ox3. Results & Data Vital Signs (Past 12 Hours) Vital Signs Temp Pulse Resp BP Pulse Ox 03/23/19 06:34 37.0 C 106 H 16 152/82 H 92 03/22/19 23:12 36.6 C 105 H 16 130/78 92
[2019-03-23] MEDS ORDERED: SITAGLIPTIN PHOSPHATE 100 MG TAB PO SCH (09:00)
[2019-03-23] MEDS ORDERED: dilTIAZem HCL 30 MG TAB PO ONE (10:15)
--- NOTE | 2019-03-23 12:58 | Electrocardiogram Report ---
Test Reason : Blood Pressure : / mmHG Vent. Rate : 109 BPM Atrial Rate : 000 BPM P-R Int : 000 ms QRS Dur : 070 ms QT Int : 320 ms P-R-T Axes : 000 -12 023 degrees QTc Int : 430 ms Atrial fibrillation with rapid ventricular response with premature ventricular or aberrantly conducte d complexes Abnormal ECG When compared with ECG of 23-FEB-2019 12:32, Atrial fibrillation has replaced Atrial flutter Confirmed by Hiram Corral ([id number]) on 03/23/2019 12:57:46 PM Referred By: Christopher Zepeda Confirmed By:Hiram Corral
--- NOTE | 2019-03-24 11:29 | Hospitalist Progress Note ---
Date of Service March 23, 2019 Assessment & Plan (1) Atrial fibrillation: Mildly tachycardic on 03/23. No symptoms though. Likely due to fluid shifts from surgery & some post-operative pain. - Gave an additional dose of diltiazem 30 PO. - Counseled to take higher dose of diltiazem CD tonight (180mg instead of her usual 120mg) - Discharged after HR came down after lunch. - Resumed anticoagulation per surgery (2) Post-operative state: S/p right TKA. Pain control per primary - Follow per their team (3) Acute blood loss anemia: Hgb decreased by 2g following surgery. Hgb stable at ~11 after that. (4) DM (diabetes mellitus), type 2: Held metformin while inpatient (5) Hypertension: Resume irbesartan, continue furosemide, diltiazem Subjective Doing well. No palpitations. No lightheadedness. No sensation of afib. Reports no fevers/chills, chest pain, shortness of breath, abdominal pain, nausea, or vomiting. Physical Exam Constitutional: WD/WN, vitals as above Eyes: EOM intact bilaterally; no conjunctival abnormality ENMT: external ear and nose normal, oropharynx normal Neck: trachea midline, no thyromegaly normal visual inspection Respiratory: normal respiratory effort, lungs clear to auscultation no respiratory distress Cardiovascular: Rate/Rhythm: + tachycardic and + irregularly irregular Heart Sounds: normal S1 and normal S2 Vessels: no JVD Extremities: no edema Gastrointestinal (Abdomen): Inspection/Auscultation: abdomen normal to inspection; abdomen not distended Musculoskeletal: no cyanosis or clubbing, extremities motor strength 5/5 Skin: no rashes, warm and dry Neurologic: moves all extremities and awake Psychiatric: Orientation: alert, oriented to person and cooperative PG Care Time/CCT Total # of Minutes Spent Total Time Spent with Patient: Total time spent is greater than 50% in coordination of care (as documented) at patient's floor/unit and/or counseling patient:
== END 2019-03-23 14:20 | disposition home health service (06) | DRG 470 ==
LOC: ASU 04:54 → 3E 09:12